=== PATIENT | male | born 1950 | race Caucasian/White ===

== ENCOUNTER 2018-07-24 07:22 | Day surgery (SDC) | payer MEDICARE, OTHER ==
[2018-07-24] MEDS: ACETYLCHOLINE OPHTH SOLN 1% 2ML (MIOCHOL-E) As Ordered (06:29)
[~2018-07-24 07:22] MED LIST: ACETAMINOPHEN 325 MG TAB PO; PHENYLEPHRINE HCL 10 % OPHTH. SOL 5ML OS; PROPARACAINE 0.5% OPHTH SOL 15ML OS
[2018-07-24] MEDS: TROPICAMIDE 1% OPHTH SOLN 2ML OS (08:00)
[2018-07-24] MEDS: CYCLOPENTOLATE 2% OPHTH SOLN 2ML BTL OS (08:00)
[2018-07-24] MEDS: OFLOXACIN 0.3 % (OCUFLOX) OPTH SOL 5ML OS (08:00)
[2018-07-24] MEDS: PHENYLEPHRINE 2.5% OPHTH SOL 2ML OS (08:00)
[2018-07-24] MEDS: LIDOCAINE 3.5 % 1ML OPHTH TOPICAL GEL OU (08:00)
[2018-07-24 08:13] LABS: BEDSIDE GLUCOSE 119 MG/DL (80-115)
[2018-07-24] MEDS ORDERED: MIDAZOLAM INJ 2 MG/2 ML VIAL (J2250) As Ordered (08:39)
[2018-07-24] MEDS ORDERED: fentaNYL 100 MCG/2 ML INJECTION (J3010) As Ordered (08:39)
[2018-07-24] MEDS: CEFUROXIME 1MG/0.1ML INTRACAMERAL INJ As Ordered (08:48)
[2018-07-24] MEDS: BALANCED SALT IRRIGATION SOLUTION 500ML BAG (FOR OR EYE MACHINE) As Ordered (08:48)
[2018-07-24] MEDS: LIDOCAINE 1% SDV 5 ML VIAL As Ordered (08:48)
[2018-07-24] MEDS: HEALON DUET (HEALON 10MG/ML 0.55ML & HEALON ENDOCOAT 30MG/ML 0.85ML) As Ordered ×2 (08:48→09:00)
[2018-07-24] MEDS: POVIDONE-IODINE 5% OPHTH PREP SOL 30ML As Ordered (08:48)
[2018-07-24] MEDS ORDERED: AcetaZOLAMIDE 500 MG ER CAP As Ordered (09:31)
[2018-07-24] MEDS: KETOROLAC 0.5% OPHTH SOLN OS (09:35)
[2018-07-24] MEDS: AcetaZOLAMIDE 500 MG ER CAP PO (09:35)
[2018-07-24] MEDS ORDERED: TRIMETHOBENZAMIDE 300 MG CAP PO (10:00)
== END 2018-07-24 09:55 | disposition home or self-care (01) ==
LOC: M SDC 07:22
DX: H25.12 Age-related nuclear cataract, left eye (principal); H57.03 Miosis; I25.10 Atherosclerotic heart disease of native coronary artery without angina pectoris; Z95.1 Presence of aortocoronary bypass graft; E11.9 Type 2 diabetes mellitus without complications; Z79.82 Long term (current) use of aspirin; Z79.899 Other long term (current) drug therapy; Z79.02 Long term (current) use of antithrombotics/antiplatelets
CPT/HCPCS: 66982

== ENCOUNTER 2018-07-31 09:18 | Day surgery (SDC) | payer MEDICARE, OTHER ==
[~2018-07-31 09:18] MED LIST changes: +PHENYLEPHRINE HCL 10 % OPHTH. SOL 5ML OD; -PHENYLEPHRINE HCL 10 % OPHTH. SOL 5ML OS; +PROPARACAINE 0.5% OPHTH SOL 15ML OD; -PROPARACAINE 0.5% OPHTH SOL 15ML OS
[2018-07-31] MEDS ORDERED: MIDAZOLAM INJ 2 MG/2 ML VIAL (J2250) As Ordered (09:55)
[2018-07-31] MEDS ORDERED: fentaNYL 100 MCG/2 ML INJECTION (J3010) As Ordered (09:55)
[2018-07-31] MEDS: CYCLOPENTOLATE 2% OPHTH SOLN 2ML BTL OD (10:17)
[2018-07-31] MEDS: PHENYLEPHRINE 2.5% OPHTH SOL 2ML OD (10:17)
[2018-07-31] MEDS: TROPICAMIDE 1% OPHTH SOLN 2ML OD (10:17)
[2018-07-31] MEDS: OFLOXACIN 0.3 % (OCUFLOX) OPTH SOL 5ML OD (10:18)
[2018-07-31] MEDS: LIDOCAINE 3.5 % 1ML OPHTH TOPICAL GEL OU (10:18)
[2018-07-31 10:47] LABS: BEDSIDE GLUCOSE 102 MG/DL (80-115)
[2018-07-31] MEDS: POVIDONE-IODINE 5% OPHTH PREP SOL 30ML As Ordered (12:00)
[2018-07-31] MEDS: BALANCED SALT IRRIGATION SOLUTION 500ML BAG (FOR OR EYE MACHINE) As Ordered (12:02)
[2018-07-31] MEDS: LIDOCAINE 1% SDV 5 ML VIAL As Ordered (12:02)
[2018-07-31] MEDS: CEFUROXIME 1MG/0.1ML INTRACAMERAL INJ As Ordered (12:02)
[2018-07-31] MEDS: HEALON DUET (HEALON 10MG/ML 0.55ML & HEALON ENDOCOAT 30MG/ML 0.85ML) As Ordered (12:02)
[2018-07-31] MEDS ORDERED: TRIMETHOBENZAMIDE 300 MG CAP PO (12:45)
[2018-07-31] MEDS: AcetaZOLAMIDE 500 MG ER CAP PO (12:50)
[2018-07-31] MEDS: KETOROLAC 0.5% OPHTH SOLN OD (12:50)
== END 2018-07-31 13:00 | disposition home or self-care (01) ==
LOC: M SDC 09:18
DX: H25.11 Age-related nuclear cataract, right eye (principal); H57.03 Miosis; I11.0 Hypertensive heart disease with heart failure; I25.10 Atherosclerotic heart disease of native coronary artery without angina pectoris; I25.2 Old myocardial infarction; I50.20 Unspecified systolic (congestive) heart failure; I48.0 Paroxysmal atrial fibrillation; E11.22 Type 2 diabetes mellitus with diabetic chronic kidney disease; N18.3 Chronic kidney disease, stage 3 (moderate); M12.9 Arthropathy, unspecified; Z79.899 Other long term (current) drug therapy; Z79.4 Long term (current) use of insulin; Z95.5 Presence of coronary angioplasty implant and graft; Z79.82 Long term (current) use of aspirin
CPT/HCPCS: 66982